=== PATIENT | male | born 1990 | race Caucasian/White ===

== ENCOUNTER → 2020-05-12 09:03 | Outpatient (CLI) | payer OTHER, SELFPAY ==
--- NOTE | ~2020-05-12 | MR_ITS ---
EXAMINATION: MR brain/brain stem wo/w con EXAM DATE: 05/12/2020 09:49 INDICATION: H57.12 - Ocular pain, left eye pain behind left eye pain behind left eye. TECHNIQUE: Magnetic resonance imaging (MRI) of the brain/brain stem obtained without contrast. Sagit jordyn T1, axial diffusion, gradient echo (T2*), T1, T2, FLAIR sequences obtained. Patient was then inj ected with 17 cc intravenous Multihance contrast. Axial and coronal postcontrast T1 weighted sequence s obtained. There is no prior study for comparison. FINDINGS: There are no areas of restricted diffusion to suggest acute infarction. There is no acute hemorrhage seen on the T2*, a hemosiderin sensitive sequence. No intraparenchymal brain mass. The ve ntricles are normal in size. There are no extra-axial collections. Flow voids are seen in the cereb ral arteries on the T2-weighted sequences consistent with their expected patency. The orbits are unr emarkable. Soft tissue is unremarkable. There is moderate-sized left maxillary sinus retention cys t. There is mild maxillary and ethmoid mucoperiosteal thickening. IMPRESSION: 1. Unremarkable orbits. 2. Mucoperiosteal thickening. Left maxillary retention cyst. Reviewed, dictated and finalized at location B. OLOGIST
[2020-05-12 09:27] LABS: Estimated Glomerular Filt Rate > 60
== END ==
PROVIDERS: PCP Internal Medicine; Visit Provider Nurse Practitioner
DX: H57.12 Ocular pain, left eye (principal); J34.1 Cyst and mucocele of nose and nasal sinus
CPT/HCPCS: 70553; A9577

== ENCOUNTER → 2022-02-14 13:27 | Outpatient (CLI) | payer OTHER, SELFPAY ==
--- NOTE | ~2022-02-14 | XR_ITS ---
EXAMINATION: XR chest 2V 02/14/2022 13:39 INDICATION: Shortness of breath PROCEDURE: 2 view chest COMPARISON: No prior studies for comparison. FINDINGS: The lungs are clear. The cardiomediastinal silhouette is within normal limits. There are no pleural effusions. There is no pneumothorax suspected. IMPRESSION: 1: NO ACUTE CARDIOPULMONARY DISEASE. Reviewed, dictated and finalized at location A.
== END ==
PROVIDERS: PCP Internal Medicine; Visit Provider Clinical Nurse Specialist
DX: R06.02 Shortness of breath (principal)
CPT/HCPCS: 71046

== ENCOUNTER 2022-06-21 05:55 | Day surgery (SDC) | payer OTHER, SELFPAY ==
[2022-06-14 08:42] VITALS: BMI 24.6
--- NOTE | 2022-06-20 16:39 | WPDANESEPPF ---
Anes - Initial Pre Proc Eval Procedure: Operation Date: 06/21/22 07:30 Proposed Procedures p Endoscopic Septoplasty - Rl French MD s Bilateral Inferior Turbinectomy with Outfracture - Rl French MD Date/Time: 06/20/22 16:39 Surgeon: Rl French MD Pre Op Diagnosis: Nasal Septal Deviation and Turbinate Hypertrophy Patient Data Age: 32 Gender: M Height: 1.88 m Weight: 87 kg Allergies Allergy/AdvReac Type Severity Reaction Status Date / Time Penicillins Allergy Severe Swelling Verified 06/21/22 06:31 Home Medications Medication Instructions Recorded Confirmed Type No Home Medications 06/14/22 06/21/22 History Patient hx anesthesia problems: none Family hx anesthesia problems: none Results Review: All pre-operative results and documents have been reviewed as part of the pre-operative evaluation. [facility] Past Medical History Medical History (Updated 06/20/22 @ 16:39 by Michael Brown DO) Allergies Asthma Migraine headache Family History Family History Mother Hypertension Father Hypertension Social History Social History Smoking status: Never smoker Second hand tobacco smoke exposure: No Alcohol intake: current Drinks per week: 5 Alcohol use details: socially - weekend Substance use: never Substance use type: does not use Living arrangements: with family Spiritual care concerns: No Anes - Eval Final PreProcedure Day of Procedure 06/20/22 16:39 Patient weight: normal Heart: regular rate and rhythm Lungs: clear to auscultation and normal air movement Airway: Mallampati scale class II Neurological: alert and oriented Last oral intake: >/= 8 hours ASA classification: II Emergent: no Anesthetic plan: proceed Anesthesia type and monitoring: general ETT and standard monitoring Results Review: All pre-operative results and documents have been reviewed as part of the pre-operative evaluation. Informed Consent: The patient's anesthetic plan and its attendant risks and benefits were discussed with the patient/family/POA. Questions were solicited and answers provided to the satisfaction of the patient/family/POA.
--- NOTE | 2022-06-20 18:02 | PM.IMHP ---
H&P: HPI History of Present Illness Date/Time: 06/20/22 18:02 Chief Complaint: with nasal obstruction nasal congestion turbinate hypertrophy septal deviation Narrative: planned surgical procedure Review of Systems Review of Systems: All systems reviewed & are unremarkable except as noted in HPI and below [facility] Past Medical History Medical History (Updated 06/20/22 @ 16:39 by Michael Brown DO) Allergies Asthma Migraine headache Family History Family History Mother Hypertension Father Hypertension Social History Social History Smoking status: Never smoker Second hand tobacco smoke exposure: No Alcohol intake: current Drinks per week: 5 Alcohol use details: socially - weekend Substance use: never Substance use type: does not use Living arrangements: with family Spiritual care concerns: No Meds Home Medications and Allergies Home Medications Medication Instructions Recorded Confirmed Type No Home Medications 06/14/22 06/14/22 History Allergies Allergy/AdvReac Type Severity Reaction Status Date / Time Penicillins Allergy Mild Rash Verified 04/02/22 07:48 Exam Narrative: turbinate hypertrophy septal deviation Assessment and Plan Assessment and plan (1) Nasal obstruction: Code(s): J34.89 - Other specified disorders of nose and nasal sinuses Status: Acute Assessment and Plan: ?plan operating room endoscopic assisted septoplasty as well as inferior turbinate submucosal reduction with outfracture.? Risks were discussed including blindness CSF leak brain change in vision septal perforation need for time off work need for splints infection damage to any structure involved in surgery damage to any structure during the maintenance and or induction of anesthesia.? (2) Nasal congestion: Code(s): R09.81 - Nasal congestion Status: Acute (3) Hypertrophy of both inferior nasal turbinates: Code(s): J34.3 - Hypertrophy of nasal turbinates Status: Acute (4) Deviated septum: Code(s): J34.2 - Deviated nasal septum Status: Acute
[2022-06-21] VITALS (9 sets, daily range): BP systolic 107–126; BP diastolic 74–97; PULSE 75–90; RESP 12–20; TEMP 36.2–36.5; O2SAT 94–100
[2022-06-21] MEDS: ACETAMINOPHEN 500 MG TABLET 1000 MG PO (06:15)
[2022-06-21] MEDS: LACTATED RINGERS 1,000 ML 30 ML IV CONT ×2 (06:38→09:07)
--- NOTE | 2022-06-21 07:27 | WPDHPUPDATE1 ---
History and Physical Update Update Date/Time: 06/21/22 07:27 History and Physical has been reviewed, including an updated exam of the patient. There are NO changes in the patient's condition. Risks, benefits, and alternatives have been discussed and questions answered. Patient agrees to proceed with procedure.
[2022-06-21] MEDS: CLINDAMYCIN 900 MG/NS 50 ML 900 MG/50 ML PIGGYBACK 50 MG IVPB (07:34)
[2022-06-21] MEDS: LIDO 1%/EPINEPHRINE 1:100,000 20 ML VIAL INFILTRATE (08:00)
--- NOTE | 2022-06-21 09:09 | P.OP_ITS ---
Procedure Note - Detailed Date of Procedure 06/21/22 Pre-op Diagnosis Nasal Septal Deviation and Turbinate Hypertrophy, nasal obstruction nasal congestion Post-op Diagnosis Same Procedure Performed endoscopic assisted septoplasty inferior turbinate submucosal reduction with outfracture Surgeon Rl French MD Anesthesia General Indications see above Findings severely deviated septum S shaped corrected no opposing perforations turbinates well reduced mulberry tips cauterized Description of Procedure patient identified consent verified. Patient brought operating room. Time-out performed. General anesthesia induced. Endotracheal tube secured taped left lower lip. Patient prepped draped position. Second time-out performed. Afrin- soaked pledgets placed allowed to sit for 5 minutes then removed. Degree endoscope utilized. 10 cc 1% lidocaine 1 100,000 parts epinephrine injected into the nasal septum bilaterally as well as inferior turbinates. Microdebrider with turbinate blade utilized to perform inferior turbinate reduction. Wilson tips cauterized with Bovie suction electrocautery setting of 10. Turbinates then outfractured. [place] incision made with 15 blade. Adequate strut left. Left nasal septal flap elevated with 7 [place] suction. Osteotome utilized to outline septoplasty and crossover. Right nasal septal flap elevated. Deviated septum removed with osteotome Robert forceps Chris Leonardo forceps. No posing perforations small perforations bilaterally about 1-2 mm no where near each other. Osmany incision closed with 3 interrupted 5 0 fast gut sutures. Bilateral nasal passages suction. Total blood loss about 10 cc. I performed all dictated portions. Abbasi splints placed bilaterally sutured anteriorly with a mattress 3-0 nylon suture. No complications patient tolerated the procedure well patient taken to PACU after care the patient be given Anesthesiology. Estimated Blood Loss 10 Drains No Packing No Pathology None sent Complications No immediate complications Condition Stable Disposition PACU
[2022-06-21] MEDS: fentaNYL CITRATE INJ (*CRX) 100 MCG/2 ML VIAL 25 MCG IV PUSH ×2 (09:30→09:40)
--- NOTE | 2022-06-21 09:53 | WPDANESPN ---
Anes - Prog Note Post-Op Date/Time: 06/21/22 09:53 Cardiovascular status: normal Respiratory status: normal Airway patency: baseline Mental status: baseline Post-Op hydration status: normal Vital Signs: Last Vital Signs Temp 36.2 C L 06/21/22 09:07 Pulse 81 06/21/22 09:45 Resp 12 06/21/22 09:45 BP 109/92 H 06/21/22 09:45 Pulse Ox 96 06/21/22 09:45 O2 Del Method Room Air 06/21/22 09:45 O2 Flow Rate 8 06/21/22 09:20 Pain Score (VAS): 2 I/O: Intake & Output 06/20/22 06/21/22 06/21/22 23:59 07:59 15:59 Intake Total 0 Balance 0 Post-procedural complaints: none Patient Feedback: Patient satisfied with anesthetic care. Other Findings: Patient vital signs back to baseline. Patient denies nausea and vomiting. Patient's pain under control. Patient OK for discharge.
[2022-06-21] MEDS: oxyCODONE HCL (*CRX) 5 MG TAB IR PO (10:18)
== END 2022-06-21 10:45 | disposition home or self-care (01) ==
PROVIDERS: PCP Internal Medicine; Visit Provider Otolaryngology
PROC: (CPT 30520; principal; 2022-06-21 07:30)
PROC: (CPT 30520; 2022-06-21 07:30)
DX: J34.3 Hypertrophy of nasal turbinates (principal)
CPT/HCPCS: 30520; 30140

== ENCOUNTER 2022-12-21 08:56 | Outpatient (CLI) | payer OTHER, SELFPAY ==
--- NOTE | 2022-12-25 07:49 | WPDPFTINT ---
PFT Procedure Performed PFT Procedure Performed Spirometry with Pre/Post Bronchodilator Plethysmography (Lung Vol) Diffusing Cap (DLCO) Flow Vol Loop PFT Interpretation DOS: 12/21/2022 REQUESTING: Luiz Sandoval MD REASON FOR TESTING: Cough PULMONARY FUNCTION TESTS Results are reliable and reproducible. Spirometry: FEV1 is 3.83 L, 77%, below normal limits. FVC is 5.99 L, 97%, normal. FEV1/ FVC is 64%, decreased consistent with airflow obstruction. The FEF 25-75 is 2.32 L, 48%, reduced. After bronchodilator, FEV1 increases to 4.51 L, 90%, 18% increase, statistically significant. FVC increases to 6.34 L, 103%, 6%. FEV1/FVC ratio is 71%, normal. FEF 25-75 increases to 3.29 L, 68%, a 42% increase. Lung volumes: Total lung capacity is 8.17 L, 106%, normal. Residual volume 1.99 L, 104%, normal. RV/TLC is 24%, normal. Airway resistance 6.52 cm water/ L/ 2nd, 656%, increased. Diffusion: DLCO 36.3, 100%, normal. DLCO /VA is 5.09 L, 105%, normal. Flow volume loop: There is subtle coving of the expiratory limb. IMPRESSION: This study shows a mild obstructive ventilatory impairment with excellent response to bronchodilator. Normal lung volumes. Normal diffusion. no prior study for comparison. Valerie Ambriz MD
== END 2022-12-21 08:57 | disposition home or self-care (01) ==
LOC: ANHPFT 08:58
PROVIDERS: PCP Internal Medicine; Visit Provider Allergy & Immunology
DX: R06.02 Shortness of breath (principal); R05.9 Cough, unspecified; R94.2 Abnormal results of pulmonary function studies
CPT/HCPCS: 94060; 94726; 94729

== ENCOUNTER 2023-10-23 12:23 | Outpatient (CLI) | payer OTHER, SELFPAY ==
--- NOTE | ~2023-10-23 | XR_ITS ---
Cervical Spine: AP, lateral, open-mouth views Clinical History: Pain Findings: The normal lordotic curve is maintained. The vertebral bodies and posterior elements appea r intact. The intervertebral disc spaces are well maintained. Pre-vertebral soft tissues are unremar kable. Impression: No significant abnormality is seen. Reviewed, dictated and finalized at [facility]. Impression: No significant abnormality is seen.
--- NOTE | ~2023-10-23 | XR_ITS ---
Right Hand Technique: PA, oblique, and lateral views were obtained. Clinical History: Pain Findings: No acute fracture or dislocation is seen. Osseous alignment is anatomic. Joint spaces are p reserved. Soft tissues are unremarkable. Impression: Unremarkable right hand. Reviewed, dictated and finalized at location M. Impression: Unremarkable right hand.
--- NOTE | ~2023-10-23 | XR_ITS ---
Left Hand Technique: PA, oblique, and lateral views were obtained. Clinical History: Pain Findings: No acute fracture or dislocation is seen. Osseous alignment is anatomic. Joint spaces are p reserved. Soft tissues are unremarkable. Impression: Unremarkable left hand. Reviewed, dictated and finalized at location M. Impression: Unremarkable left hand.
--- NOTE | ~2023-10-23 | XR_ITS ---
AP and lateral views of the sacrum/coccyx CLINICAL HISTORY: Pain FINDINGS: No fracture or dislocation seen. Joint spaces are preserved. Soft tissues are unremarkable. IMPRESSION: Unremarkable exam. Reviewed, dictated and finalized at location . IMPRESSION: Unremarkable exam.
--- NOTE | ~2023-10-23 | XR_ITS ---
Lumbosacral Spine: AP and lateral views Clinical History: Pain Findings: The normal lordotic curve is maintained. The vertebral bodies and posterior elements are i ntact. The intervertebral disc spaces are preserved. There is mild to moderate facet arthropathy fro m L4 to S1. The sacroiliac joints are normally outlined. Impression: Facet arthropathy lower lumbar spine, as above. Reviewed, dictated and finalized at location M. Impression: Facet arthropathy lower lumbar spine, as above.
== END 2023-10-23 12:24 ==
PROVIDERS: PCP Internal Medicine; Visit Provider Physician Assistant Medical
DX: M54.42 Lumbago with sciatica, left side (principal); M47.896 Other spondylosis, lumbar region; G89.29 Other chronic pain; Z79.899 Other long term (current) drug therapy
CPT/HCPCS: 72040; 72100; 72220; 73130; 73630